=== PATIENT | female | born 1960 | race Caucasian/White ===

== ENCOUNTER 2016-07-21 17:57 | Emergency (ER) | payer OTHER ==
[~2016-07-21] VITALS: Ht 162.6 cm; Wt 78.3 kg
[~2016-07-21 17:57] MED LIST: CELEXA20 MG PO; CELEXA40 MG PO; CITALOPRAM HBR20 M1 PO; EFFEXOR XR37.5 MG PO; LEVOTHROID,S0.137 MG PO; LIPITOR20 MG PO; LISINOPRIL40 MG PO; METOPROLOL SUC100 MG PO; NEXIUM40 MG PO; ONDANSETRON HCL4 M1 PO; RESTASIS 01 DROP/0.4 BOTH EYES; ST. JOSEPH ASPI81 MG PO; SYNTHROID125 MCG PO; SYNTHROID137 MCG PO; XANAX; XANAX0.25 MG PO; ZESTRIL40 MG PO; ZOLOFT50 MG PO
[2016-07-21] MEDS ORDERED: AUGMENTIN875 MG PO (19:02)
[2016-07-21 20:36] VITALS: BP 128/107
== END 2016-07-21 20:38 | disposition home or self-care (01) ==
LOC: EME 17:57
DX: S61.451A Open bite of right hand, initial encounter (principal); W55.01XA Bitten by cat, initial encounter; Z23 Encounter for immunization; Z88.6 Allergy status to analgesic agent
CPT/HCPCS: 73130; 99281; 99283

== ENCOUNTER 2017-05-17 11:50 | Observation (INO) | payer OTHER ==
[~2017-05-17] VITALS: Ht 162.6 cm; Wt 79.3 kg
[~2017-05-17 11:50] MED LIST changes: +AUGMENTIN875 MG PO; -RESTASIS 01 DROP/0.4 BOTH EYES; +RESTASIS MULTI5.5 ML BOTH EYES
[2017-05-17 12:44] LABS: HEMATOCRIT 43.1 % (36.0-46.0); HEMOGLOBIN 14.8 G/DL (11.9-15.5); MCH 30.5 PG (29.0-34.0); MCHC 34.3 G/DL (30.0-36.0); MCV 88.9 FL (83-99); PLATELET COUNT 301 K/uL (156-360); RBC DIS.WIDTH-CV 12.5 % (11.8-14.6); RBC DIS.WIDTH-SD 40.9 % (39-53); RED BLOOD COUNT 4.85 M/uL (3.80-5.20); WHITE BLOOD COUNT 7.8 K/uL (4.1-10.2)
[2017-05-17 12:57] LABS: CHLORIDE 101 mEq/L (99-109); POTASSIUM 4.6 mEq/L (3.7-5.4); SODIUM 141 mEq/L (136-147)
[2017-05-17 12:58] LABS: GLUCOSE 100 mg/dL (70-99)
[2017-05-17 13:02] LABS: GFR ESTIMATE (CALCULATED) > 59 mL/min/
[2017-05-17 13:03] LABS: UREA NITROGEN (BUN) 17 mg/dL (9-23)
[2017-05-17 13:07] LABS: TROP-I INTERPRETATION NEGATIVE; TROPONIN-I < 0.01 ng/mL (0.0-0.30)
[2017-05-17 13:39] LABS: D-DIMER ELISA < 150.00 ng/mLDDU (<230)
[2017-05-17] MEDS ORDERED: VENLAFAXINE HC150 M1 PO (15:19)
[2017-05-17] MEDS ORDERED: REXULTI1 MG PO (15:20)
[2017-05-17 17:16] VITALS: BP 142/87
[2017-05-17 18:24] LABS: TROP-I INTERPRETATION NEGATIVE; TROPONIN-I < 0.01 ng/mL (0.0-0.30)
[2017-05-17 20:00] VITALS: BP 109/76
[2017-05-17 23:54] VITALS: BP 133/81
[2017-05-18 01:27] LABS: TROP-I INTERPRETATION NEGATIVE; TROPONIN-I < 0.01 ng/mL (0.0-0.30)
[2017-05-18 03:43] VITALS: BP 153/82
[2017-05-18 07:17] VITALS: BP 116/80
[2017-05-18 12:25] VITALS: BP 136/82
== END 2017-05-18 14:26 | disposition home or self-care (01) ==
LOC: EME 11:50 → EDOF 15:14 → ENRESERV 15:23 → 5WEST 17:04
PROVIDERS: Nurse Practitioner Adult Health
DX: R07.89 Other chest pain (principal); R73.03 Prediabetes; R61 Generalized hyperhidrosis; R11.0 Nausea; R91.1 Solitary pulmonary nodule; I10 Essential (primary) hypertension; F41.9 Anxiety disorder, unspecified; F32.9 Major depressive disorder, single episode, unspecified; Z87.891 Personal history of nicotine dependence; Z85.850 Personal history of malignant neoplasm of thyroid; K21.9 Gastro-esophageal reflux disease without esophagitis; Z79.82 Long term (current) use of aspirin; Z88.5 Allergy status to narcotic agent
CPT/HCPCS: 71046; 80048; 84484; 85027; 85379; 93005; 99281; 99285; G0378; J1885